=== PATIENT | female | born 2000 | race African-American/Black ===

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

== ENCOUNTER 2023-05-17 12:08 | Emergency (ER) | payer MEDICAID, OTHER ==
[~2023-05-17] VITALS: Ht 165.1 cm; Wt 82.0 kg
[2023-05-17 12:16] VITALS: BP 99/84; PULSE 100; RESP 20; O2SAT 100
[2023-05-17 12:47] LABS: CLARITY URINE CLOUDY (CLEAR); COLOR URINE DARK YELLOW (YELLOW); GLUCOSE URINE NEGATIVE (NEGATIVE); KETONES URINE 2+ (NEGATIVE); LEUKOCYTE ESTERASE URINE 1+ (NEGATIVE); NITRITE URINE POSITIVE (NEGATIVE); OCCULT BLOOD URINE NEGATIVE (NEGATIVE); PH URINE 5.5 (4.5-8.0); PROTEIN URINE 1+ (NEGATIVE); SPECIFIC GRAVITY URINE 1.034 (1.005-1.030)
[2023-05-17 13:01] LABS: BACTERIA URINE 2+; MUCUS URINE 2+ /lpf (< = 2+); SQUAMOUS EPITHELIAL CELL URINE 3+ /lpf (RARE/1+); YEAST URINE NONE SEEN
[2023-05-17 13:33] LABS: BASOPHILS % 0.5 % (0.0-2.0); DIFFERENTIAL COMMENT 0; EOSINOPHILS % 0.3 % (0.0-5.0); HEMOGLOBIN. 14.2 g/dL (12.0-16.0); LYMPHOCYTES % 13.9 % (20.0-50.0); MEAN CORPUSCULAR VOLUME 78.8 fL (81.0-99.0); MEAN PLATELET VOLUME 7.5 fl (7.4-10.4); NEUTROPHILS % 77.3 % (40.0-76.0); PLATELET 387 x1000/uL (130-400); RED BLOOD CELL COUNT 5.46 mill/uL (4.2-5.4); RED CELL DISTRIBUTION WIDTH 15.2 % (11.6-14.6); WHITE BLOOD COUNT 13.7 x1000/uL (4.5-11.0)
[2023-05-17 13:55] LABS: ALANINE AMINOTRANSFERASE < 7 IU/L (10-49); ALBUMIN 5.1 g/dL (3.2-4.8); ASPARTATE AMINOTRANSFERASE 15 IU/L (<34); CALCIUM 9.9 mg/dL (8.7-10.4); CARBON DIOXIDE 23 mEq/L (21-32); CHLORIDE 100 mEq/L (98-107); CREATININE 0.7 mg/dL (0.6-1.0); GLUCOSE 87 mg/dL (70-105); HCG SCREEN POSITIVE; POTASSIUM 4.1 mEq/L (3.5-5.1); PROTEIN TOTAL 8.7 g/dL (6.0-8.3); SODIUM 135 mEq/L (136-145); UREA NITROGEN BLOOD 10 mg/dL (9-23)
[2023-05-17 19:13] LABS: BETA HYDROXYBUTYRATE 1.3 mMol/L (0.0-0.3)
== END 2023-05-17 20:00 | disposition left against medical advice (07) ==
LOC: ER 12:08
DX: R11.2 Nausea with vomiting, unspecified (principal); Z53.21 Procedure and treatment not carried out due to patient leaving prior to being seen by health care provider
CPT/HCPCS: 36415; 80053; 81003; 81025; 82010; 84702; 84703; 85025; 99281; 99283